=== PATIENT | female | born 1990 | race African-American/Black ===

== ENCOUNTER 2017-09-07 01:59 | Emergency (ER) | payer MEDICAID ==
[~2017-09-07] VITALS: Ht 172.7 cm; Wt 73.0 kg
[2017-09-07] MEDS ORDERED: VISCOUS LIDOCAINE 2% 15 ML UDC MM STA (05:45)
[2017-09-07] MEDS ORDERED: ACETAMINOPHEN 500MG TABLET PO ONE (05:45)
[2017-09-07] MEDS ORDERED: ACETAMINOPHEN 650MG/20.3ML UDC PO ONE (06:00)
[2017-09-07 06:32] VITALS: BP 111/55
== END 2017-09-07 06:32 | disposition home or self-care (01) ==
LOC: ER 01:59
DX: J06.9 Acute upper respiratory infection, unspecified (principal)
CPT/HCPCS: 81025; 99283; Z7610